=== PATIENT | male | born 1975 | race Two or more races ===

== ENCOUNTER 2024-08-17 10:07 | Emergency (ER) | payer MEDICAID, SELFPAY ==
[2024-08-17 10:31] VITALS: BP 147/89; PULSE 83; RESP 17; TEMP 36.9; O2SAT 98; BMI 30.4
--- NOTE | 2024-08-17 10:41 | XR_ITS ---
Examination: Hand, right 3 views Technique: Hand AP, oblique, lateral 3 views Date and time of exam: August 17, 2024 1031 hrs. Indications: Injury to the hand 3 days ago, hand pain. Findings: Acute angulated fracture distal fifth metacarpal No dislocation Impression: Acute angulated fracture distal fifth metacarpal
--- NOTE | 2024-08-17 11:17 | EDNOTE_ITS ---
<Statement entered by Audrey Dillard MD - 08/17/24 16:21> As co-signing physician, I was present and available for consult prn. I concur with the plan and care as documented by the midlevel provider. Upper Extremity Injury RME/HPI General Chief Complaint: Extremity Injury, Upper Stated Complaint: right hand hit ground while using car adam Time Seen by Provider: 08/17/24 10:10 Arrival date/time: 08/17/24 10:07 48-year-old male presents emergency department complaint of right hand pain patient reports that he was working on his truck and injured his right hand on the hand hit the ground reports injury happened on Friday Limitations: no limitations Related Data Previous Rx's ?Medication ?Instructions ?Recorded ibuprofen 800 mg tablet 800 mg PO TID PRN pain #30 tabs 08/17/24 Allergies Allergy/AdvReac Type Severity Reaction Status Date / Time No Known Allergies Allergy Verified 08/17/24 10:08 Review of Systems Review of Systems Systems Reviewed: All systems reviewed, normal except as documented Constitutional Constitutional: Reports system reviewed and no additional complaints, except as documented, Denies fever(s) and Denies headache(s) Eyes Eyes: Reports system reviewed and no additional complaints, except as documented and Denies blurry vision ENT Ears, Nose, Mouth, and Throat: Reports system reviewed and no additional complaints, except as documented, Denies headache(s), Denies nasal congestion and Denies nasal discharge Cardiovascular Cardiovascular: Reports system reviewed and no additional complaints, except as documented, Denies chest pain and Denies dyspnea Respiratory Respiratory: Reports system reviewed and no additional complaints, except as documented, Denies chest congestion, Denies cough and Denies dyspnea Gastrointestinal Gastrointestinal: Reports system reviewed and no additional complaints, except as documented and Denies abdominal pain Musculoskeletal Musculoskeletal: Reports system reviewed and no additional complaints, except as documented, Denies abnormal gait, Reports arthralgias, Denies deformity, Denies joint swelling, Denies stiffness and Denies tingling Integumentary/Breasts Skin/Breast: Reports system reviewed and no additional complaints, except as documented and Denies rash Neurologic Neurologic: Reports system reviewed and no additional complaints, except as documented, Reports as per HPI, Denies abnormal gait, Denies headache(s) and Denies tingling Past Medical History Social History SMOKING STATUS: Current every day smoker ED Exam General Limitations: Present no limitations General appearance: Present alert and in no apparent distress Head Head exam: Present atraumatic Eye Eye exam: Present normal appearance, PERRL and EOMI ENT ENT exam: Present normal exam, normal oropharynx and mucous membranes moist Neck Neck exam: Present normal inspection, full ROM and trachea midline Chest Chest inspection: Present normal inspection and symmetric chest wall rise Respiratory Respiratory exam: Present normal lung sounds bilaterally Cardiovascular Cardiovascular exam: Present regular rate, normal rhythm and normal heart sounds Abdominal Exam Abdominal exam: Present soft and normal bowel sounds Extremities Exam Extremities exam: Present normal inspection and full ROM Back Exam Back exam: Present normal inspection and full ROM Neurological Exam Neurological exam: Present alert, oriented X3 and CN II-XII intact Psychiatric Psychiatric exam: Present normal affect and normal mood Skin Skin exam: Present warm, dry, intact and normal color Course Quality Measures none Orders Category Date Time Status XR hand comp RT min 3V Stat Exams 08/17/24 10:41 Completed Vital Signs Vital signs: Vital Signs Temperature 98.5 F 08/17/24 10:31 Pulse Rate 83 08/17/24 10:31 Respiratory Rate 17 08/17/24 10:31 Blood Pressure 147/89 H 08/17/24 10:31 Pulse Oximetry (%) 98 08/17/24 10:31 Oxygen Delivery Method Room Air 08/17/24 10:31 O2 saturation 98% room air within normal limits Procedures -ED Splint Fabrication: Clinician Made Type: Boxer Reason for Splint: Optimal Positioning and Pain Management Site condition: Pain Circulation Distal to Splint: Yes Movement Distal to Splint: Yes Senation Distal to Splint: Yes Tolerance: Tolerates Well Extremity Injury [facility] Narrative MDM Narrative:: 48-year-old male presents emergency department complaint of right hand pain patient reports that he was working on his truck and injured his right hand on the hand hit the ground reports injury happened on Friday On exam patient is injury to the right hand patient has swelling to the dorsal aspect of the right hand patient can move all fingers but reports pain with movement X-ray of the right hand obtained patient has boxer's fracture consistent with patient's injury Patient placed in a ulnar gutter splint Consultation: I spoke with Dr. Paula neff to see the patient as office Friday 3 PM Patient data External records reviewed:: [facility] previous records Clinical information provided by:: patient Social determinants that could affect healthcare access:: substance use Patient has the following chronic illnesses:: See history How is presenting disease/condition affected by chronic disease/condition?: uneffected by Evaluation data The following diagnostics were reviewed and interpreted by me:: radiology exam(s) Lab and/or radiology exams considered but not ordered:: Radiology obtain Interpretation Summary: Reviewed by me Medications / Prescriptions Medications or Prescriptions considered but not ordered:: Given Medication administrations:: Given Consultations Consultation(s) initiated? (list below): No Diagnosis Upper Extremity Injury Differential Diagnosis: fracture of wrist, finger sprain, dislocation of finger and fracture of hand Most likely diagnosis given after review of the tests above:: Hand fracture Admission Indicated Admission indicated?: not indicated Admission Request Was there a request for admission?: No Disposition Plan Disposition Plan: Discharge Discharge Attestation Discharge Attestation: The patient and all family members were given an opportunity to ask questions an d understood the discharge instructions. Discharge instructions specifically effects, indications for sooner follow up or return to the emergency department, and the expected course of current diagnosis. Patient condition: Stable Discharge Plan Plan Patient Disposition: HOME (Self Care) Disposition Comment: stable Prescriptions/Referrals Prescriptions/Med Rec: New ibuprofen 800 mg tablet 800 mg PO TID PRN (Reason: pain) Qty: 30 0RF Referrals: Markus Arciniega MD [Physician] - 08/23/24 3:00 pm Problem List Clinical Impression: Fracture of hand Patient/Caregiver Discharge Instructions Education Materials: How [employer] [facility] Additional Instructions: Please follow-up with orthopedist as discussed for worsening symptoms return immediately Print Language: Mongolian Stand Alone Forms: [facility]ath[employer] Award Info., Patient Portal Info Letter ADRIANA/CHERIE Supervising Physician ROMIE Supervising Physician: Dr. Dillard
== END 2024-08-17 12:20 | disposition home or self-care (01) ==
PROVIDERS: Emergency Provider Emergency Medicine; PCP Nurse Practitioner Women's Health
DX: S62.306A Unspecified fracture of fifth metacarpal bone, right hand, initial encounter for closed fracture (principal); X58.XXXA Exposure to other specified factors, initial encounter
CPT/HCPCS: 29126; 73130; 99283

== ENCOUNTER 2024-08-26 13:06 | Emergency (ER) | payer MEDICAID, SELFPAY ==
[2024-08-26 13:12] VITALS: BP 149/106; PULSE 93; RESP 19; TEMP 36.9; O2SAT 99; BMI 31.1
[2024-08-26 13:21] VITALS: BMI 31.1
--- NOTE | 2024-08-26 13:59 | EDNOTE_ITS ---
<Statement entered by Audrey Dillard MD - 09/02/24 16:20> As co-signing physician, I was present and available for consult prn. I concur with the plan and care as documented by the midlevel provider. ED Medical Clearance RME/HPI General Chief complaint: Medical Clearance Stated complaint: MEDICAL CLEARANCE Time Seen by Provider: 08/26/24 13:14 Source: police Arrival date/time: 08/26/24 13:06 This is a 48-year-old male who presents to the emergency department accompanied with a police sergeant precinct for medical halfway clearance. Patient had sustained a boxer's fracture approximately 1 week ago and is wearing a splint that was placed on by Dr. Suze estrella. Medical staff at the halfway was requesting medical clearance due to the splint. Patient has no complaints of splint. Splint appears to be in well position CMS intact. No concerns voiced by patient. Mode of arrival: ambulatory Related Information Previous Rx's ?Medication ?Instructions ?Recorded ibuprofen 800 mg tablet 800 mg PO TID PRN pain #30 tabs 08/17/24 Allergies Allergy/AdvReac Type Severity Reaction Status Date / Time No Known Allergies Allergy Verified 08/26/24 13:27 Review of Systems Review of Systems Systems Reviewed: All systems reviewed, normal except as documented Narrative Review of Systems: Gen: No fever, no chills, no weight loss EYES: No discharge, no visual changes, no pain HEENT: No ear pain, no congestion, no sore throat PULM: No shortness of breath, no cough, no congestion CV: No chest pain, no dyspnea on exertion, no palpitations GI: No nausea, no vomiting, no diarrhea, no pain, no constipation : No frequency, no urgency,? no dysuria Musc/skel: No joint pain, no back pain Skin: No rash? Psyc: No hallucinations, no depression Heme/Lymph: No easy bleeding or bruising tendencies Neuro: No weakness, no headache ED Exam Narrative Physical exam: General: Sittiing in Exam table in no acute distress, answering questions approp riately HENT: normocephalic, atraumatic, EOMI, PERRLA, moist mucous membranes Chest: chest wall is nontender Cardiac: regular rate and rhythm, normal S1 and S2, no murmurs, rubs, or gallops, capillary refill ?2 seconds Pulmonary: clear to auscultation bilaterally, no wheezing, crackles, or rhonchi Abdominal: active bowel sounds, soft, nontender, nondistended Neuro: A&OX3, CN II-XII intact, sensation grossly intact bilaterally in UE and LE. Skin: no rashes, no ecchymosis Ext: no lower extremity edema Course Quality Measures none Vital Signs Vital signs: Vital Signs Temperature 98.4 F 08/26/24 13:12 Pulse Rate 93 08/26/24 13:12 Respiratory Rate 19 08/26/24 13:12 Blood Pressure 149/106 H 08/26/24 13:12 Pulse Oximetry (%) 99 08/26/24 13:12 Oxygen Delivery Method Room Air 08/26/24 13:12 Medical Clearance MDM Narrative MDM Narrative:: This is a 48-year-old male who presents to the emergency department accompanied with a police sergeant precinct for medical halfway clearance. Patient had sustained a boxer's fracture approximately 1 week ago and is wearing a splint that was placed on by Dr. Arciniega orthopedic. Medical staff at the halfway was requesting medical clearance due to the splint. Patient has no complaints of splint. Splint appears to be in well position CMS intact. No concerns voiced by patient. Patient data External records reviewed:: [facility] previous records Clinical information provided by:: patient Social determinants that could affect healthcare access:: none Patient has the following chronic illnesses:: none How is presenting disease/condition affected by chronic disease/condition?: no chronic disease Evaluation data The following diagnostics were reviewed and interpreted by me:: other (specify) Lab and/or radiology exams considered but not ordered:: no Interpretation Summary: n/a Medications / Prescriptions Medications or Prescriptions considered but not ordered:: no Medication administrations:: no Consultations Consultation(s) initiated? (list below): No Diagnosis Medical Clearance Differential Diagnosis: other Most likely diagnosis given after review of the tests above:: medical halfway clearance Admission Indicated Admission indicated?: not indicated Admission Request Was there a request for admission?: No Disposition Plan Disposition Plan: Discharge Discharge Attestation Discharge Attestation: The patient and all family members were given an opportunity to ask questions and understood the discharge instructions. Discharge instructions specifically effects, indications for sooner follow up or return to the emergency department, and the expected course of current diagnosis. Patient condition: Stable Discharge Plan Plan Patient Disposition: Long Term/Court/Law Patient condition on transfer: Stable Prescriptions/Referrals Prescriptions/Med Rec: No Action ibuprofen 800 mg tablet 800 mg PO TID PRN (Reason: pain) Qty: 30 0RF Referrals: No Primary/Family,Physician [Primary Care Provider] - In 1 week Problem List Clinical Impression: Medical clearance for incarceration, Boxer's fracture Patient/Caregiver Discharge Instructions Discharge Activity: activity as tolerated Education Materials: ED Closed Hand Fracture (Adult) Additional Instructions: Patient released in the custody of the [place] [employer] department. Patient has a fabricated cast on placed on by orthopedic. CMS intact. Patient is to follow-[facility] with [facility] primary doctor or [facility] for any medical issues that arise. To return to Emergency department if any symptoms worsen. Print Language: Lao PA/CHERIE Supervising Physician PA/PRESS CLEANER Supervising Physician: Dr. Prather
== END 2024-08-26 14:12 ==
PROVIDERS: Emergency Provider Emergency Medicine
DX: Z02.89 Encounter for other administrative examinations (principal); S62.109A Fracture of unspecified carpal bone, unspecified wrist, initial encounter for closed fracture; X58.XXXA Exposure to other specified factors, initial encounter
CPT/HCPCS: 99281